=== PATIENT | male | born 1955 | race Caucasian/White ===

== ENCOUNTER → 2024-02-07 19:23 | Outpatient (REF) | payer MEDICARE, SELFPAY | LOC: PAVMRI 19:23 | PROVIDERS: ATTENDING PHYSICIAN Orthopaedic Surgery; FAMILY PHYSICIAN Family Medicine | DX: M54.12 Radiculopathy, cervical region (principal) | CPT/HCPCS: 72141 ==

== ENCOUNTER 2024-02-11 07:14 | Inpatient (IN) | payer MEDICARE, SELFPAY ==
[2024-02-08 15:04] VITALS: BP 117/66
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
[2024-02-08] MEDS: DILAUDID 0.5 MG IV (16:43)
[2024-02-08] MEDS: ZOFRAN 4 MG IV (16:44)
[2024-02-08 16:51] VITALS: BP 140/73
[2024-02-08 16:52] LABS: % Basophils 0.3 % (0-2); % Eosinophils 0.6 % (0-6); % Immature Granulocytes 0.5 % (0-0.5); % Lymphocytes 6.1 % (20.5-51.1); % Monocytes 5.2 % (1.7-9.3); % Neutrophils 87.3 % (42.2-75.2); Absolute Eosinophils 0.1 10^3/uL (0-0.7); Absolute Immature Granulocytes 0.1 10^3/uL (0-0.05); Absolute Monocytes 0.8 10^3/uL (0.1-0.6); Absolute Neutrophils 13.8 10^3/uL (1.4-6.5); Hematocrit 44.2 % (39.0-52.0); Hemoglobin 14.8 g/dL (13.0-18.0); Mean Corp Hgb Conc. 33.5 g/dL (33.0-37.0); Mean Corpuscular Hgb 30.5 pg (27.0-31.0); Mean Corpuscular Volume 90.9 fL (80.0-94.0); Mean Platelet Volume 10.5 fL (7.4-10.4); Nucleated Red Blood Cells % 0 % (-); Platelet Count 177 10^3/uL (130-400); Red Blood Cell Count 4.86 10^6/uL (4.70-6.10); Red Cell Dist. Width 12.7 % (11.5-14.5); White Blood Cell Count 15.8 10^3/uL (4.8-10.8)
[2024-02-08 17:00] VITALS: BP 140/72
[2024-02-08 17:14] LABS: ALT (SGPT) 18 U/L (0-50); AST (SGOT) 26 U/L (17-59); Albumin 4.4 g/dl (3.5-5.0); Alkaline Phosphatase 84 U/L (38-126); Blood Urea Nitrogen 18 mg/dl (9-20); Calcium 9.6 mg/dl (8.4-10.2); Carbon Dioxide 31 mmol/L (22-30); Chloride 103 mmol/L (98-107); Glucose 139 mg/dl (70-99); Potassium 4.4 mmol/L (3.5-5.1); Sodium 139 mmol/L (135-145); Total Bilirubin 0.8 mg/dl (0.2-1.3); Total Protein 7.3 g/dl (6.3-8.2); eGFR > 60.00
[2024-02-08] MEDS: DILAUDID 0.25 MG IV (19:29)
--- NOTE | 2024-02-08 20:26 | EDRN ---
Pt. was discharged w/ follow up plan in place and prescriptions sent for pain control at home. Originally, pt. was agreeable. After RN took out pt.'s IV, placed sling, and attempted to assist pt. into wheelchair, pt. became very upset, stating, 'I
can't go home. I can't care for myself and I'm in an extreme amount of pain'. ELECTRICIAN STATION ASSISTANT aware. Pt. to be admitted.
[2024-02-08 20:41] VITALS: BP 134/85
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
[2024-02-08 22:03] VITALS: BP 132/82
[2024-02-08 22:38] VITALS: BP 126/68
[2024-02-08] MEDS: SENOKOT 17.2 MG PO (23:23)
[2024-02-08] MEDS: TORADOL 15 MG IV (23:24)
[2024-02-08] MEDS: TYLENOL 1000 MG PO (23:24)
[2024-02-08] MEDS: FLUSH (NSS) 2 FLUSH IV (23:28)
--- NOTE | 2024-02-09 04:23 | PTCARENOTE ---
Patient received from ED via wheelchair. He was assisted to stand with assist x2. He was able to walk to bathroom to use toilet and for HS care with assist. Right arm sling in place. Son at bedside until patient settled ad then went home.
Patient was oriented to room and surrounding. HRR, breath sounds are diminished, abdomen round nontender. Patient c/o pain to left knee. States he didn't feel pain there when in ED but now feels it. Has had repair to kneecap in past but this is
not that pain. +1 knee edema noted. +pedal pulse. Patient admits to chronic swelling there. LEAD MINER, covering house in to eval. XRY ordered for am. Toradol as per prn order. Patient sleeping quietly now.
[2024-02-09] MEDS: TYLENOL 1000 MG PO ×3 (07:31→21:33)
[2024-02-09] MEDS: PROTONIX 40 MG PO (07:31)
--- NOTE | 2024-02-09 07:31 | W.PN.HOSP.TC ---
Today's Communication/Plan
-
Pain Control
PT/OT
Ortho Eval
Assessment / Plan
Assessment / Plan
Physical Exam
General: No acute distress appears comfortable at this time.
HEENT: Moist mucous membranes and PERRLA
Respiratory: Clear; No Wheezes, Rales or Rhonchi
Cardiac: S1/S2 and Regular Rhythm; No Murmur
GI: Soft, Non Tender, Non Distended and Normal Bowel Sounds
Musculoskeletal: RUE in sling.
Neuro: AO x 3
A/P: Patient is a 69y M with no significant PMH who presents to ED for evaluation of pain in the R shoulder and low back following trauma this afternoon.
Trauma
Right Scapula / Glenoid Fracture
Left 10th Rib Fracture with Displacement
Left L1 Transverse Process Fracture
- Pain control prn opiates, Toradol and Valium.
- Maintain sling to the RUE.
- Ortho eval appreciated
- PT / OT evaluations
-Venous duplex neg for DVT
GERD
-cont PPI
Leukocytosis
- Likely stress response.
- Resolved
DVT Prophylaxis: SCDs
Code Status: Full
I spent a total of 50 minutes with the patient or on the floor. More than 50% of this time involved counseling and coordination of care.
Anticipated Discharge: 24 - 48 hours
Subjective/Interval History
-
Date of Service: February 09, 2024
no acute distress comfortable at rest. Expresses concern left calf discomfort feels similar back to when he had a DVT.
Objective Data
-
Labs:
Laboratory Results
02/09/24
06:57
WBC Pending
Hgb Pending
Hct Pending
Plt Count Pending
Sodium Pending
Potassium Pending
Chloride Pending
Carbon Dioxide Pending
BUN Pending
Creatinine Pending
Glucose Pending
Calcium Pending
Vital Signs:
Vital Signs
Temp Pulse Resp BP Pulse Ox
97.9 F 80 18 126/68 93
02/08/24 22:38 02/08/24 22:38 02/08/24 22:38 02/08/24 22:38 02/08/24 22:38
I&O
02/08/24 02/09/24 02/10/24
06:59 06:59 06:59
Intake Total 480 / 480
Output Total
Balance 479 / 479
[2024-02-09 08:03] LABS: Hematocrit 40.4 % (39.0-52.0); Hemoglobin 13.5 g/dL (13.0-18.0); Mean Corp Hgb Conc. 33.4 g/dL (33.0-37.0); Mean Corpuscular Hgb 30.3 pg (27.0-31.0); Mean Corpuscular Volume 90.6 fL (80.0-94.0); Mean Platelet Volume 10.8 fL (7.4-10.4); Platelet Count 161 10^3/uL (130-400); Red Blood Cell Count 4.46 10^6/uL (4.70-6.10); White Blood Cell Count 8.6 10^3/uL (4.8-10.8)
[2024-02-09 08:20] LABS: Blood Urea Nitrogen 20 mg/dl (9-20); Carbon Dioxide 29 mmol/L (22-30); Chloride 102 mmol/L (98-107); Glucose 92 mg/dl (70-99); Potassium 3.9 mmol/L (3.5-5.1); Sodium 136 mmol/L (135-145); eGFR > 60.00
[2024-02-09] MEDS: TORADOL 15 MG IV (09:26)
[2024-02-09 09:30] VITALS: BP 140/71
[2024-02-09 09:33] LABS: Hepatitis C Antibody Negative (Negative)
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
[2024-02-09 11:50] VITALS: BMI 29.4
--- NOTE | 2024-02-09 12:19 | PTCARENOTE ---
Pt experiencing a lot of pain w/ movement. Unable to get OOB w/ assistance to get to stretcher for testing. Pt c/o feeling L lung congestion this morning - chest xray added on. Pt also c/o pain in L calf - hospitalist aware - SCDs discontinued
and US pending. PT/OT waiting for ortho to see pt before doing assessment.
--- NOTE | 2024-02-09 12:26 | VNURNOTE ---
[facility] met with patient to explain [facility] services, frequency of visits, homebound status. Brochure provided with contact numbers. Patient requesting elevated toilet seat. Also requesting lift to help with getting out of a standard chair. This
author reached out to [facility], spoke with Sheree. She confirmed she has elevated toilet seats in stock. Chair lift would be out of pocket. Awaiting PT eval and further documentation before proceeding. Referral placed in [facility].
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
[2024-02-09] MEDS: ROXICODONE 10 MG PO ×2 (13:34→22:45)
[2024-02-09 15:20] VITALS: BP 138/73
[2024-02-09] MEDS: LOVENOX 40 MG SC (18:43)
--- NOTE | 2024-02-09 19:18 | PTCARENOTE ---
Pt OOB w/ assist from nurse. Able to ambulate down abebe w/o assistive devices. Used bathroom and voided. Sitting in chair and eating dinner / chatting w/ family. Pain tolerable.
[2024-02-09] MEDS: SENOKOT 17.2 MG PO (21:32)
[2024-02-09 23:19] VITALS: BP 120/66
--- NOTE | 2024-02-10 07:10 | W.PN.HOSP.TC ---
Today's Communication/Plan
-
PT/OT
Back Brace ordered
pain control
Right upper Extremity nonweightbearing
Assessment / Plan
Assessment / Plan
Physical Exam
General: No acute distress appears comfortable at this time.
HEENT: Moist mucous membranes and PERRLA
Respiratory: Clear; No Wheezes, Rales or Rhonchi
Cardiac: S1/S2 and Regular Rhythm; No Murmur
GI: Soft, Non Tender, Non Distended and Normal Bowel Sounds
Musculoskeletal: RUE motion limited due to pain
Neuro: AO x 3
A/P: Patient is a 69y M with no significant PMH who presents to ED for evaluation of pain in the R shoulder and low back following trauma this afternoon.
Trauma
Right Scapula / Glenoid Fracture
Left 10th Rib Fracture with Displacement
Left L1 Transverse Process Fracture
- Pain control prn opiates, Toradol and Valium.
Ortho eval appreciated
-Sling to right upper extremity
-Right upper extremity nonweightbearing
-Continue range of motion of elbow to prevent stiffness
- PT / OT evaluations
-Venous duplex neg for DVT
-Neurosx eval requested
-[place] back brace ordered for comfort
GERD
-cont PPI
Leukocytosis
- Likely stress response.
- Resolved
DVT Prophylaxis: SCDs
Code Status: Full
I spent a total of 50 minutes with the patient or on the floor. More than 50% of this time involved counseling and coordination of care.
Anticipated Discharge: 24 - 48 hours
Subjective/Interval History
-
Date of Service: February 10, 2024
continues to report pain, recently received prn. RUE motion limited d/t pain
Objective Data
-
Labs:
Laboratory Results
02/10/24
06:00
WBC Pending
Hgb Pending
Hct Pending
Plt Count Pending
Sodium Pending
Potassium Pending
Chloride Pending
Carbon Dioxide Pending
BUN Pending
Creatinine Pending
Glucose Pending
Calcium Pending
Vital Signs:
Vital Signs
Temp Pulse Resp BP Pulse Ox
98.0 F 70 18 120/66 93
02/09/24 23:19 02/09/24 23:19 02/09/24 23:19 02/09/24 23:19 02/09/24 23:19
I&O
02/09/24 02/10/24 02/11/24
06:59 06:59 06:59
Intake Total 480 / 480
Output Total
Balance 479 / 479
[2024-02-10 07:49] VITALS: BP 132/68
[2024-02-10] MEDS: PROTONIX 40 MG PO (07:50)
[2024-02-10] MEDS: DILAUDID 0.5 MG IV ×3 (07:50→19:46)
[2024-02-10] MEDS: TYLENOL 1000 MG PO ×3 (07:50→22:31)
[2024-02-10 08:13] LABS: Blood Urea Nitrogen 17 mg/dl (9-20); Calcium 8.8 mg/dl (8.4-10.2); Carbon Dioxide 27 mmol/L (22-30); Chloride 102 mmol/L (98-107); Estimated Creatinine Clearance 86 ml/min; Glucose 110 mg/dl (70-99); Phosphorus 2.9 mg/dl (2.5-4.5); Potassium 4.2 mmol/L (3.5-5.1); Sodium 133 mmol/L (135-145); eGFR > 60.00
[2024-02-10 08:21] LABS: Hematocrit 39.9 % (39.0-52.0); Hemoglobin 13.6 g/dL (13.0-18.0); Mean Corp Hgb Conc. 34.1 g/dL (33.0-37.0); Mean Corpuscular Hgb 30.3 pg (27.0-31.0); Mean Corpuscular Volume 88.9 fL (80.0-94.0); Mean Platelet Volume 11.1 fL (7.4-10.4); Platelet Count 145 10^3/uL (130-400); Red Blood Cell Count 4.49 10^6/uL (4.70-6.10); Red Cell Dist. Width 12.9 % (11.5-14.5); White Blood Cell Count 9.5 10^3/uL (4.8-10.8)
[2024-02-10] MEDS: ROXICODONE 10 MG PO (12:13)
[2024-02-10 15:11] VITALS: BP 132/72
[2024-02-10] MEDS: LOVENOX 40 MG SC (17:49)
[2024-02-10] MEDS: FLUSH (NSS) 1 FLUSH IV (19:49)
[2024-02-10] MEDS: SENOKOT 17.2 MG PO (22:31)
[2024-02-10 23:13] VITALS: BP 103/63
--- NOTE | 2024-02-11 07:00 | W.PN.HOSP.TC ---
Today's Communication/Plan
-
PT/OT
Pain Control
Pending [employer] equipment back brace fitting for comfort
maintain RUE sling nonweightbearing
Gabapentin
Nystatin Swish
fall precautions
Neurosx Orthopedic evals appreciated
Assessment / Plan
Assessment / Plan
Physical Exam
General: Mild distress due to pain
HEENT: Moist mucous membranes and PERRLA
Respiratory: Clear; No Wheezes, Rales or Rhonchi
Cardiac: S1/S2 and Regular Rhythm; No Murmur
GI: Soft, Non Tender, Non Distended and Normal Bowel Sounds
Musculoskeletal: RUE motion limited due to pain, sling in place
Neuro: AO x 3
A/P: Patient is a 69y M with no significant PMH who presents to ED for evaluation of pain in the R shoulder and low back following trauma this afternoon.
Trauma
Right Scapula / Glenoid Fracture
Left 10th Rib Fracture with Displacement
Left L1 Transverse Process Fracture
- Pain control prn opiates, Toradol and Valium.
Ortho eval appreciated right elbow fracture ruled out with XR and subsequent CT
-Sling to right upper extremity
-Right upper extremity nonweightbearing
-Continue range of motion of elbow to prevent stiffness
- PT / OT eval appreciated home health with 24h assist
-Venous duplex neg for DVT
-Neurosx eval appreciated no surgical intervention indicated, ok to mobilize as needed, LSO brace as needed for comfort
-Lawall back brace ordered for comfort awaiting fitting
Right wrist XR
-no acute abn's, noted old 4 mm ununited chip fracture at the tip of the ulnar styloid
RUE neuropathic pain
Gabapentin started 100 mg TID
Oral Thrush
nystatin swish started 02/10-02/16 planned for 7 days therapy, may extend depending on response
GERD
-cont PPI
Leukocytosis
- Likely stress response.
- Resolved
-later mild elevation noted, remains afebrile, no other signs symptoms infection noted, monitoring off abx
CXR noted low lung volumes atelectasis likely due to inspiratory effort restricted by pain
-Possible Right basilar pna noted does not correlate clinically at this time. Monitoring off abx
-Incentive spirometer encouraged
DVT Prophylaxis: SCDs
Code Status: Full
discussed with patient and family at bedside
I spent a total of 50 minutes with the patient or on the floor. More than 50% of this time involved counseling and coordination of care.
Anticipated Discharge: 24 - 48 hours
Subjective/Interval History
-
Date of Service: February 11, 2024
Patient reporting shooting pain right upper extremity (with known history degenerative disc disease likely neuropathic pain).
Patient also reports uncomfortable sensation in mouth and back of throat (examination tongue noted cottage cheese appearance likely oral thrush)
Otherwise, patient reports pain well controlled at rest with current pain regimen.
Reports constipation, bowel regimen increased.
Family present at bedside during evaluation.
Objective Data
-
Labs:
Laboratory Results
02/11/24
06:00
WBC Pending
Hgb Pending
Hct Pending
Plt Count Pending
Sodium Pending
Potassium Pending
Chloride Pending
Carbon Dioxide Pending
BUN Pending
Creatinine Pending
Glucose Pending
Calcium Pending
Vital Signs:
Vital Signs
Temp Pulse Resp BP Pulse Ox
97.5 F 75 16 103/63 94
02/10/24 23:13 02/10/24 23:13 02/10/24 23:13 02/10/24 23:13 02/10/24 23:13
I&O
02/10/24 02/11/24 02/12/24
06:59 06:59 06:59
Intake Total 950 / 950
Output Total 600 / 600
Balance 350 / 350
[2024-02-11 07:20] VITALS: BP 144/68
[2024-02-11 08:00] LABS: Hematocrit 39.5 % (39.0-52.0); Hemoglobin 13.5 g/dL (13.0-18.0); Mean Corp Hgb Conc. 34.2 g/dL (33.0-37.0); Mean Corpuscular Hgb 29.9 pg (27.0-31.0); Mean Corpuscular Volume 87.4 fL (80.0-94.0); Red Blood Cell Count 4.52 10^6/uL (4.70-6.10); Red Cell Dist. Width 12.8 % (11.5-14.5); White Blood Cell Count 12.1 10^3/uL (4.8-10.8)
[2024-02-11] MEDS: TYLENOL 1000 MG PO ×3 (08:26→21:25)
[2024-02-11] MEDS: PROTONIX 40 MG PO (08:26)
[2024-02-11 08:41] LABS: Mean Platelet Volume 11.7 fL (7.4-10.4); Platelet Count 139 10^3/uL (130-400)
[2024-02-11 09:35] LABS: Blood Urea Nitrogen 13 mg/dl (9-20); Calcium 9.2 mg/dl (8.4-10.2); Carbon Dioxide 28 mmol/L (22-30); Chloride 101 mmol/L (98-107); Estimated Creatinine Clearance 97 ml/min; Glucose 123 mg/dl (70-99); Phosphorus 2.9 mg/dl (2.5-4.5); Potassium 4.2 mmol/L (3.5-5.1); Sodium 134 mmol/L (135-145); eGFR > 60.00
[2024-02-11] MEDS: ROXICODONE 10 MG PO (09:45)
--- NOTE | 2024-02-11 11:14 | CON.NS ---
Chief Complaint
-
L1 Tp fracture
History of Present Illness
Is a 69-year-old male admitted on 02/08/2024 status post fall from a rear driven forklift. He attempted to lift a low to heavy the forklift tipped and he went over the top of the forklift landing on his back. He noted severe amounts of pain at that
time came to the ER for evaluation. CAT scans were obtained which showed a left L1 transverse process fracture. As well as a T10 left rib fracture and right scapular fracture. Seen by orthopedics was placed in a sling for his scapular fracture.
Denies any radicular symptoms into his upper or lower extremities at this point in time. Denies any weakness in his lower extremities. He has expected pain with movement.
Review of Systems
-
10 point review of systems obtained is negative except stated in HPI
Medication and Allergies
Home Medications
Home Medications
�Medication �Instructions �Recorded
omeprazole 20 mg capsule,delayed 20 mg PO DAILY Gastrointestinal 02/08/24
release Issue
Allergies
Allergies
Allergy/AdvReac Type Severity Reaction Status Date / Time
No Known Allergies Allergy Verified 02/08/24 15:07
Physical Exam
-
Exam:
Awake alert and orient x 3
Right upper extremity in sling
Bruising visible on the left leg
Full strength upper lower extremities right upper extremity limited evaluation due to scapular fracture
Normal sensation
Normal reflexes
CAT scan shows left L1 transverse process fracture. There is possibly a left L2 transverse process fracture as well
Problems
-
Problem Status Onset Code
Fx lumbar vertebra-closed S32.009A
Fracture of rib S22.39XA
Fracture closed, scapula S42.109A
Assessment / Plan
-
Left transverse process fracture
1. No acute neurosurgical interventions
2. Okay to mobilize as needed
3. LSO brace as needed for comfort does not need to wear if he does not want to
4. No follow-up is needed for this transverse process fracture however he did state to me that he does have an appointment scheduled with me for cervical spine on Monday of next week. I am going to have the office reach out to reschedule him
for 6 weeks.
[2024-02-11 12:15] VITALS: BP 116/74; PULSE 82; O2SAT 96
[2024-02-11 12:56] VITALS: BP 116/74; PULSE 82; O2SAT 96
[2024-02-11] MEDS: MYCOSTATIN ORAL SUSPENSION 5 ML PO ×3 (13:25→21:24)
[2024-02-11] MEDS: NEURONTIN 100 MG PO ×3 (13:25→21:25)
[2024-02-11] MEDS: MIRALAX 17 GRAMS PO (13:25)
--- NOTE | 2024-02-11 13:41 | W.PN.UPDATE ---
Update Note
Progress Note Update
X-rays of right elbow limited due to patient limitations with motion. There is degenerative spurring and calcification adjacent to the coronoid, concerning for possible fracture.
X-rays of the right wrist negative for acute pathology.
Evaluated patient who reports increased swelling and bruising about his right elbow. He has pain/limitations with rotation of the forearm. He does have a h/o proximal biceps tendon rupture at the level of the shoulder with associated king
deformity. He denies any n/t, but does have pain with ROM of the wrist, particularly in the forearm, and again worse with forearm rotation. He has been worked up for cervical radiculopathy with recent MRI c spine prior to injury.
Moderate diffuse swelling of entire RUE. Sling in place. There is swelling and ecchymosis about the medial aspect of the forearm. Biceps tendon palpable in antecubital fossa. Good flexion/extension. Limited pronation/supination secondary to
pain/apprehesion. Full ROM wrist and hand without pain. Full sensation about entire RUE. N/v intact.
Imaging reviewed with Dr. Carrasco. Due to patient's level of pain, swelling, and limitation with elbow ROM, will order CT of the right elbow to evaluate for acute fracture. Will follow up with results of imaging to further discuss definitive
treatment recommendations going forward. Maintain sling immobilization and NWB RUE. Will add lidocaine patches for pain control.
[2024-02-11] MEDS: TORADOL 15 MG IV (13:48)
[2024-02-11] MEDS: LIDOCAINE 4% PATCH TOPICAL ×2 (14:00→14:35)
[2024-02-11 15:05] VITALS: BP 119/65
[2024-02-11] MEDS: LOVENOX 40 MG SC (18:10)
[2024-02-11] MEDS: LIDOCAINE 4% PATCH 1 PATCH TOPICAL (18:11)
[2024-02-11] MEDS: SENOKOT-S 1 TABLET PO (21:24)
[2024-02-11 23:35] VITALS: BP 136/67
[2024-02-12 07:45] VITALS: BP 134/69
[2024-02-12 08:45] LABS: Hematocrit 39.6 % (39.0-52.0); Hemoglobin 13.5 g/dL (13.0-18.0); Mean Corp Hgb Conc. 34.1 g/dL (33.0-37.0); Mean Corpuscular Hgb 29.7 pg (27.0-31.0); Mean Corpuscular Volume 87.2 fL (80.0-94.0); Mean Platelet Volume 11.1 fL (7.4-10.4); Platelet Count 187 10^3/uL (130-400); Red Blood Cell Count 4.54 10^6/uL (4.70-6.10); Red Cell Dist. Width 12.9 % (11.5-14.5)
[2024-02-12] MEDS: MIRALAX 17 GRAMS PO (09:09)
[2024-02-12] MEDS: SENOKOT-S 1 TABLET PO (09:09)
[2024-02-12] MEDS: MYCOSTATIN ORAL SUSPENSION 5 ML PO ×2 (09:09→13:30)
[2024-02-12] MEDS: PROTONIX 40 MG PO (09:09)
[2024-02-12] MEDS: NEURONTIN 100 MG PO ×2 (09:09→16:25)
[2024-02-12] MEDS: LIDOCAINE 4% PATCH TOPICAL (09:10)
[2024-02-12] MEDS: TYLENOL 1000 MG PO ×2 (09:16→16:25)
[2024-02-12 09:32] LABS: Blood Urea Nitrogen 15 mg/dl (9-20); Calcium 9.1 mg/dl (8.4-10.2); Carbon Dioxide 26 mmol/L (22-30); Chloride 101 mmol/L (98-107); Estimated Creatinine Clearance 97 ml/min; Glucose 114 mg/dl (70-99); Phosphorus 3.7 mg/dl (2.5-4.5); Potassium 4.3 mmol/L (3.5-5.1); Sodium 133 mmol/L (135-145); eGFR > 60.00
[2024-02-12] MEDS: DELTASONE 40 MG PO (10:22)
--- NOTE | 2024-02-12 10:32 | W.PN.UPDATE ---
Update Note
Progress Note Update
CT of the right elbow is negative for fracture. Mild arthritic changes. Based on his clinical exam, subjective complaints, and radiologic findings at this point I do believe his symptoms are stemming from the 5-6 level of his cervical spine. He
complains of some mild neck pain into the shoulder and down the arm into the right thumb. This correlates well with his cervical MRI findings. I included Drs. Dumnot and Luna via TT and recommended steroid dosing as they work on disposition. I
discussed all the conservative, nonsurgical treatment for, what I believe to be, a cervical radiculopathy. Upon discharge I would recommend a follow-up with our PM&R team. D/c plan updated. Ortho to sign off for now as we await post hospital plan
--- NOTE | 2024-02-12 11:23 | CM ---
Addendum entered by Apolonia Ashley 02/12/24 14:20:
Patient switched to inpatient and IMM provided
Home today with VN
Original Note:
manager environmental health reviewed patient's chart and met with patient and per patient plan is for possible discharge later today, per patient he has chair lift delivered to his home, patient is asking for a commode, caser reached out to physical therapy
who will need a script for a commode, physician is aware.
Plan; Home with [facility], physical therapy to supply commode and patient has ordered a chair lift and had it delivered to his home.
--- NOTE | 2024-02-12 14:10 | W.DS.TRANS ---
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
-
Discharge Instructions:
Discharge Diagnosis/Procedures Trauma
Right Scapula / Glenoid Fracture
Left 10th Rib Fracture with Displacement
Left L1 Transverse Process Fracture
RUE neuropathic pain
Diet Low Cholesterol
Activity As tolerated
Blood Work bmp in 1 week with pcp
Instructions:
Stand-Alone Forms:
Changes to Home Medications: Yes
Discharge Medications:
DC Medications w/original date entered in [employer]
omeprazole 20 mg capsule,delayed release 20 mg PO DAILY Gastrointestinal Issue 02/08/24
gabapentin 100 mg capsule 100 mg PO TID 30 days #90 caps 02/12/24
lidocaine 4 % topical patch 1 patch topical DAILY #30 ea 02/12/24
methylprednisolone 4 mg tablets in a dose pack (Medrol (Ray)) See Rx Instructions PO .COMPLEX #21 ea 02/12/24
oxycodone 10 mg tablet 10 mg PO Q4HPRN PRN Moderate Pain #18 tabs 02/12/24
Home Medication Changes
gabapentin 100 mg capsule 100 mg PO TID 30 days #90 caps 02/12/24
lidocaine 4 % topical patch 1 patch topical DAILY #30 ea 02/12/24
methylprednisolone 4 mg tablets in a dose pack (Medrol (Ray)) See Rx Instructions PO .COMPLEX #21 ea 02/12/24
oxycodone 10 mg tablet 10 mg PO Q4HPRN PRN Moderate Pain #18 tabs 02/12/24
Pending Results: No
[2024-02-12 14:45] VITALS: BP 127/63
--- NOTE | 2024-02-13 16:52 | W.PN.HOSP.TC ---
Addendum entered and electronically signed by Frankie Tenorio MD 02/13/24 16:56:
[id number]
Original Note:
Today's Communication/Plan
-
-Medrol logan upon dc
-follow-up with our PM&R team
Maintain sling immobilization and NWB RUE.
Assessment / Plan
Assessment / Plan
Physical Exam
General: Mild distress due to pain
HEENT: Moist mucous membranes and PERRLA
Respiratory: Clear; No Wheezes, Rales or Rhonchi
Cardiac: S1/S2 and Regular Rhythm; No Murmur
GI: Soft, Non Tender, Non Distended and Normal Bowel Sounds
Musculoskeletal: RUE motion limited due to pain, sling in place
Neuro: AO x 3
A/P: Patient is a 69y M with no significant PMH who presents to ED for evaluation of pain in the R shoulder and low back following trauma this afternoon.
Trauma
Right Scapula / Glenoid Fracture
Left 10th Rib Fracture with Displacement
Left L1 Transverse Process Fracture
- Pain control prn opiates, Toradol and Valium.
Ortho eval appreciated right elbow fracture ruled out with XR and subsequent CT
-Sling to right upper extremity
-Right upper extremity nonweightbearing
-Continue range of motion of elbow to prevent stiffness
- PT / OT eval appreciated home health with 24h assist
-Venous duplex neg for DVT
-Neurosx eval appreciated no surgical intervention indicated, ok to mobilize as needed, LSO brace as needed for comfort
-Lawall back brace ordered for comfort awaiting fitting
-Medrol logan upon dc
-follow-up with our PM&R team
Maintain sling immobilization and NWB RUE.
Right wrist XR
-no acute abn's, noted old 4 mm ununited chip fracture at the tip of the ulnar styloid
RUE neuropathic pain
Gabapentin started 100 mg TID
Oral Thrush
nystatin swish started 02/10-02/16 planned for 7 days therapy, may extend depending on response
GERD
-cont PPI
Leukocytosis
- Likely stress response.
- Resolved
-later mild elevation noted, remains afebrile, no other signs symptoms infection noted, monitoring off abx
CXR noted low lung volumes atelectasis likely due to inspiratory effort restricted by pain
-Possible Right basilar pna noted does not correlate clinically at this time. Monitoring off abx
-Incentive spirometer encouraged
DVT Prophylaxis: SCDs
Code Status: Full
discussed with patient and family at bedside
More than 30 minutes spent in discharge including
Final examination of the patient
Summarizing hospital stay
Instructions for continuing care to all relevant caregivers
Preparation of discharge records, prescriptions, and referral forms
Total time spent (35 in minutes):
Anticipated Discharge: Today
Subjective/Interval History
-
Date of Service: February 12, 2024
no acute events, pain improved
Objective Data
-
Vital Signs:
Vital Signs
Temp Pulse Resp BP Pulse Ox
97.9 F 84 19 127/63 92
02/12/24 14:45 02/12/24 14:45 02/12/24 14:45 02/12/24 14:45 02/12/24 14:45
I&O
02/12/24 02/13/24 02/14/24
06:59 06:59 06:59
Intake Total 1460 / 1460 480 / 480
Output Total 1280 / 1280 750 / 750
Balance 180 / 180 -270 / -270
Review of Systems
-
History Source: Patient
All other systems: Not reviewed unless documented
Data Reviewed
-
Diagnostic Radiology: Image personally visualized and interpreted and Report Reviewed by me
CT Scan: Image personally visualized and interpreted and Report Reviewed by me
Labs: Labs Reviewed by me
== END 2024-02-12 17:37 | disposition home health service (06) | DRG 563 ==
LOC: 4 WEST ACU 07:14
PROVIDERS: Internal Medicine; Nurse Practitioner; ADMITTING PHYSICIAN Hospitalist; ATTENDING PHYSICIAN Internal Medicine; CONSULT PHYSICIAN Neurological Surgery; CONSULT PHYSICIAN Orthopaedic Surgery; EMERGENCY PHYSICIAN Emergency Medicine; FAMILY PHYSICIAN Family Medicine
DX: S42.101A Fracture of unspecified part of scapula, right shoulder, initial encounter for closed fracture (principal); B37.0 Candidal stomatitis; M25.562 Pain in left knee; K21.9 Gastro-esophageal reflux disease without esophagitis; X58.XXXA Exposure to other specified factors, initial encounter
CPT/HCPCS: 70450; 71046; 71260; 72125; 73030; 73060; 73070; 73110; 73200; 73564; 73700; 74177; 80048; 80053; 83735; 84100; 85025; 85027; 86803; 87070; 93970; 96374; 96375; 96376; 97163; 97167; 97530; 97535; 99285; Q9967

== ENCOUNTER → 2024-02-14 16:28 | Outpatient (REF) | payer MEDICARE, SELFPAY | LOC: RAD 16:28 | PROVIDERS: ATTENDING PHYSICIAN Family Medicine | DX: R22.31 Localized swelling, mass and lump, right upper limb (principal); M79.621 Pain in right upper arm | CPT/HCPCS: 93971 ==

== ENCOUNTER 2024-02-14 17:45 | Emergency (ER) | payer MEDICARE, SELFPAY ==
[2024-02-14 17:47] VITALS: BP 163/79
[2024-02-14 17:59] LABS: % Basophils 0.6 % (0-2); % Eosinophils 3.4 % (0-6); % Immature Granulocytes 0.4 % (0-0.5); % Lymphocytes 16.8 % (20.5-51.1); % Monocytes 11.5 % (1.7-9.3); % Neutrophils 67.3 % (42.2-75.2); Absolute Basophils 0.1 10^3/uL (0-0.2); Absolute Eosinophils 0.3 10^3/uL (0-0.7); Absolute Lymphocytes 1.6 10^3/uL (1.2-3.4); Absolute Monocytes 1.1 10^3/uL (0.1-0.6); Absolute Neutrophils 6.3 10^3/uL (1.4-6.5); Hematocrit 39.2 % (39.0-52.0); Hemoglobin 13.3 g/dL (13.0-18.0); Mean Corp Hgb Conc. 33.9 g/dL (33.0-37.0); Mean Corpuscular Volume 88.3 fL (80.0-94.0); Mean Platelet Volume 10.1 fL (7.4-10.4); Nucleated Red Blood Cells % 0 % (-); Platelet Count 228 10^3/uL (130-400); Red Blood Cell Count 4.44 10^6/uL (4.70-6.10); Red Cell Dist. Width 12.8 % (11.5-14.5); White Blood Cell Count 9.3 10^3/uL (4.8-10.8)
[2024-02-14 18:10] LABS: INR 0.93; PT 12.5 Sec (11.4-14.6)
[2024-02-14 18:16] LABS: ALT (SGPT) 40 U/L (0-50); AST (SGOT) 45 U/L (17-59); Albumin 3.9 g/dl (3.5-5.0); Alkaline Phosphatase 88 U/L (38-126); Blood Urea Nitrogen 21 mg/dl (9-20); Calcium 9.4 mg/dl (8.4-10.2); Carbon Dioxide 29 mmol/L (22-30); Chloride 102 mmol/L (98-107); Glucose 117 mg/dl (70-99); Potassium 4.5 mmol/L (3.5-5.1); Sodium 140 mmol/L (135-145); Total Bilirubin 0.5 mg/dl (0.2-1.3); eGFR > 60.00
[2024-02-14 19:32] VITALS: BP 145/85
--- NOTE | 2024-02-14 20:03 | ED.GENMED ---
History of Present Illness
General
Chief Complaint: DVT/Possible Blood Clot
Source: patient
Time Seen by Provider: 02/14/24 19:52
History of Present Illness
History of Present Illness:
69-year-old male presents to the emergency room complaining of DVT in the right upper extremity. Patient had a recent hospitalization here at [facility] for a glenoid and scapular fracture which occurred after a fall. Patient is right-hand
dominant. He was noted to have swelling and discomfort in the right upper extremity prompting a DVT study. The study was positive for DVT. He was sent in to initiate treatment. Patient denies chest pain or shortness of breath.
Past History
Past History
ED Past Medical History: GERD
ED Past Surgical History: Orthopedic
Social History
Tobacco: Former smoker
Alcohol: Daily (2 beers/evening)
Drug: None
Personal:
Phy Exam
Physical Exam
Physical Exam:
General: Awake, Alert, Oriented X3. No acute distress.
Vitals: unremarkable
Head: Atraumatic
Eyes: Pupils equal, EOMI
Neck: Trachea midline
Lungs: Clear and equal b/l
Heart: Regular rate, no murmurs
Neuro: Nonfocal
Skin: Warm, dry, no rash
Extremities: pulses equal b/l, moderate swelling noted right upper extremity, cap refill intact
Course
Orders/Labs/Results
Orders:
Orders
02/14/24 17:53
CMP [Comprehensive Metabolic Panel] Urgent
Complete Blood Count/With Diff Urgent
Glycohemoglobin (HgbA1c) Urgent
PT/INR [Prothrombin Time] Urgent
02/14/24 20:03
Apixaban [Eliquis] 10 mg PO NOW STA
02/14/24 21:47
Add On- LAB Urgent
Tests Added?: hemaglobin A1C
Abnormal Lab Results
02/14/24
17:53
RBC 4.44 L 10^6/uL
(4.70-6.10)
Absolute Monos (auto) 1.1 H 10^3/uL
(0.1-0.6)
Lymphocytes % 16.8 L %
(20.5-51.1)
Monocytes % 11.5 H %
(1.7-9.3)
BUN 21 H mg/dl
(9-20)
Glucose 117 H mg/dl
(70-99)
02/14/24 17:53
02/14/24 17:53
Vital Signs
Initial and Last Documented VS:
Initial Vital Signs
Temp Pulse Resp BP Pulse Ox
99.0 F 81 18 163/79 97
02/14/24 17:47 02/14/24 17:47 02/14/24 17:47 02/14/24 17:47 02/14/24 17:47
Last Documented Vital Signs
Temp Pulse Resp BP Pulse Ox
99.0 F 85 18 145/85 96
02/14/24 17:47 02/14/24 19:32 02/14/24 19:32 02/14/24 19:32 02/14/24 19:32
MDM/Problems Addressed
Differential Diagnosis Includes:
New onset DVT
MDM/Problems Addressed:
Patient presents from outpatient imaging with a right upper extremity DVT. Physical exam did not suggest any limb ischemia or venous congestion. His heart rate is normal, he does not have pleuritic chest pain, he is not hypotensive and his pulse
ox is normal. We will initiate Eliquis. Patient stable for discharge. There is no objective evidence for PE. Even if he had a small PE the treatment will be the same.
*Radiology
Radiology exam reviewed: radiology read reviewed
*Pulse Oximetry
Patient hypoxic: no
*Console Attendant Interpretation
Rate: normal
Interpretation: normal
Heart Rate: 85
Rhythm: sinus
*Critical Care Note
Total Time (30-74mins, 75-104mins- exclusive of procedures): Not Applicable
ED Attending Note
-
Portions of this chart may have been created with voice recognition software.� Occasional wrong word or��sound alike� substitutions may have occurred due to the inherent limitations of voice recognition software.
Discharge Plan
Departure
Patient Disposition: Home (Routine Discharge)
Date of Disposition: 02/14/24
Time of Disposition: 20:08
Patient with high blood pressure during this ER visit?: Yes
Condition: Good
Discharge Problem:
Acute deep vein thrombosis (DVT) of right upper extremity
Prescriptions:
New
Eliquis DVT-PE Treat 30D Start 5 mg (74 tabs) tablets,dose pack
See Rx Instructions .ROUTE .COMPLEX Qty: 74 0RF
Rx Instructions:
orally per package directions
No Action
omeprazole 20 mg Capsule,Delayed Release(Dr/Ec)
20 mg PO DAILY
lidocaine 4 % Adhesive Patch,Medicated
1 patch topical DAILY Qty: 30 0RF
gabapentin 100 mg Capsule
100 mg PO TID 30 Days Qty: 90 0RF
oxycodone 10 mg Tablet
10 mg PO Q4HPRN PRN (Reason: Moderate Pain) Qty: 18 0RF
methylprednisolone [Medrol (Ray)] 4 mg tablets,dose pack
See Rx Instructions .ROUTE .COMPLEX Qty: 21 0RF
Rx Instructions:
orally per package directions
nystatin 100,000 unit/mL Suspension
5 ml PO QID 7 Days Qty: 140 0RF
Interventions
Interventions:
*Risk Screen - Suicide Last Done: 02/14/24 19:34
*General Assessment Last Done: 02/14/24 17:47
*Neglect/Abuse Screening Last Done: 02/14/24 19:34
*ED COVID-19 Vaccine History Last Done: 02/14/24 17:47
*Nursing Disposition Last Done: 02/14/24 20:38
ED- Cardiac Assessment Last Done: 02/14/24 19:34
ED- Pulmonary Assessment Last Done: 02/14/24 19:34
ED-Peripheral Vascular Assessment Last Done: 02/14/24 19:34
ED-Skin Assessment Last Done: 02/14/24 19:34
Discharge Date and Time
Discharge Date/Time: 02/14/24 20:39
Print Language: BHUTANESE
[2024-02-14] MEDS: ELIQUIS 10 MG PO (20:20)
[2024-02-15 10:18] LABS: Glycohemoglobin (HgbA1c) 6.1 % (4.0-5.6)
== END 2024-02-14 20:39 | disposition home or self-care (01) ==
LOC: EMR 17:45
PROVIDERS: Emergency Medicine; EMERGENCY PHYSICIAN Emergency Medicine; FAMILY PHYSICIAN Family Medicine
DX: I82.621 Acute embolism and thrombosis of deep veins of right upper extremity (principal); R03.0 Elevated blood-pressure reading, without diagnosis of hypertension; K21.9 Gastro-esophageal reflux disease without esophagitis; Z87.891 Personal history of nicotine dependence
CPT/HCPCS: 99283; 80053; 83036; 85025; 85610

== ENCOUNTER 2024-03-01 10:12 | Emergency (ER) | payer MEDICARE, SELFPAY ==
[2024-03-01 10:15] VITALS: BP 144/80
[2024-03-01 12:38] VITALS: BP 138/80
[2024-03-01 12:41] VITALS: BMI 30.3
[2024-03-01 12:53] LABS: % Basophils 0.3 % (0-2); % Eosinophils 2.7 % (0-6); % Immature Granulocytes 0.3 % (0-0.5); % Lymphocytes 20.7 % (20.5-51.1); % Monocytes 10.5 % (1.7-9.3); % Neutrophils 65.5 % (42.2-75.2); Absolute Eosinophils 0.2 10^3/uL (0-0.7); Absolute Lymphocytes 1.6 10^3/uL (1.2-3.4); Absolute Monocytes 0.8 10^3/uL (0.1-0.6); Absolute Neutrophils 4.9 10^3/uL (1.4-6.5); Hematocrit 39.4 % (39.0-52.0); Hemoglobin 13.4 g/dL (13.0-18.0); Mean Corpuscular Hgb 30.7 pg (27.0-31.0); Mean Corpuscular Volume 90.2 fL (80.0-94.0); Mean Platelet Volume 10.3 fL (7.4-10.4); Nucleated Red Blood Cells % 0 % (-); Platelet Count 201 10^3/uL (130-400); Red Blood Cell Count 4.37 10^6/uL (4.70-6.10); Red Cell Dist. Width 12.8 % (11.5-14.5); White Blood Cell Count 7.5 10^3/uL (4.8-10.8)
[2024-03-01 12:55] LABS: Urine Albumin Negative (Neg - Trace); Urine Bilirubin Negative (Negative); Urine Character Clear (Clear); Urine Color Yellow; Urine Glucose Negative (Negative); Urine Ketone Negative (Negative); Urine Leukocyte Negative (Negative); Urine Nitrite Negative (Negative); Urine Occult Blood Negative (Negative); Urine Specific Gravity 1.015 (<1.030); Urine Urobilinogen 1+ (Neg - 1+)
[2024-03-01 12:59] LABS: Chloride 104 mmol/L (98-107); Potassium 4.3 mmol/L (3.5-5.1); Sodium 138 mmol/L (135-145)
[2024-03-01 13:00] VITALS: BP 129/72
[2024-03-01 13:03] LABS: Lactic Acid 0.7 mmol/L (0.7-2.0)
[2024-03-01 13:09] LABS: ALT (SGPT) 54 U/L (0-50); AST (SGOT) 35 U/L (17-59); Albumin 3.8 g/dl (3.5-5.0); Alkaline Phosphatase 102 U/L (38-126); Blood Urea Nitrogen 17 mg/dl (9-20); Calcium 9.5 mg/dl (8.4-10.2); Carbon Dioxide 28 mmol/L (22-30); Estimated Creatinine Clearance 97 ml/min; Glucose 81 mg/dl (70-99); Lipase 145 U/L (23-300); Total Bilirubin 0.7 mg/dl (0.2-1.3); Total Protein 6.6 g/dl (6.3-8.2); eGFR > 60.00
--- NOTE | 2024-03-01 14:44 | ED.GENMED ---
History of Present Illness
General
Chief Complaint: Abdominal Pain
Source: patient, records, spouse, family and physician (Primary care physician)
Exam Limitations: none
Time Seen by Provider: 03/01/24 11:37
Nursing documentation reviewed up to this point in time: agreed with
History of Present Illness
History of Present Illness:
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
Shortly after discharge she had an outpatient ultrasound of the right upper extremity for continued pain and swelling and was found to have a right upper extremity DVT and he was started on Eliquis and has been taking Eliquis since. He presents
today to the emergency room for abdominal distention and pain. He also reports increased swelling in his legs. He says that symptoms started 4 days ago and have progressed to the point that he feels like 'I am 9 months .' He says he has
diffuse abdominal pain. He has swelling in both legs symmetric. He denies any nausea, vomiting, diarrhea in fact has been mildly constipated. Denies any fevers or chills. Denies any other complaints.
Past History
Past History
ED Past Medical History: GERD
ED Past Surgical History: Orthopedic
Social History
Tobacco: Former smoker
Alcohol: Daily (2 beers/evening)
Drug: None
Personal:
Review of Systems
Review of Systems
All Other Systems: ROS reviewed and negative except as documented in HPI and ROS
Constitutional: Denies fever or chills
Respiratory: Denies trouble breathing
Cardiac: Denies chest pain
ABD/GI: Reports abdominal pain and constipated; Denies nausea, vomiting or diarrhea
: Denies flank pain
Musculoskeletal: Reports edema; Denies neck pain or back pain
Neurological: Denies dizzy or headache
Phy Exam
Physical Exam
Physical Exam:
General: Awake, alert; no acute distress
Head: Normocephalic, atraumatic
Eyes: Conjunctiva normal, sclera anicteric
Throat: Airway intact, handling secretions
Neck: Trachea midline
Lungs: Clear to auscultation bilaterally, no wheezing, rales, rhonchi
Heart: Regular rate and rhythm, no murmurs, gallops, or rubs
Abd: Soft, mildly distended, mild diffuse tenderness but no focal tenderness, no palpable abdominal masses
Neuro: No gross deficit
Skin: no rash
Extremities: +2 pitting edema in the lower extremities bilaterally; distal extremities warm and well-perfused
Scores
Heart Failure Risk
Heart Failure Risk Score: Not Applicable
Heart Score for Chest Pain Patients
STEMI patient?: Not applicable
Withdrawal Assessment of Alcohol
Withdrawal Assessment Completed?: Not applicable
Course
Orders/Labs/Results
Orders:
Orders
03/01/24 11:39
CT Abd/pelvis W Iv Cont Urgent
Comment:
Reason For Exam: upper abd pain, distention
03/01/24 12:23
Complete Blood Count/With Diff Urgent
Comprehensive Metabolic Panel Urgent
Lactate Level [Lactic Acid] Urgent
Lipase Urgent
Urinalysis Reflex To Culture Urgent
Date Specimen was Collected: 03/01/24
Time Specimen was Collected: 12:22
03/01/24 12:50
EKG [Electrocardiogram (*1)] Urgent
Reason for Study: Fatigue / Weakness
03/01/24 12:51
EKG- Treatment ONCE
03/01/24 14:55
US Periph Venous LOWER Ext Juanito Urgent
Comment:
Reason For Exam: LE swelling, recent dx UE DVT
03/01/24 16:32
Add On- LAB Urgent
Tests Added?: pro-BNP
03/01/24 16:33
CR Chest - 2 Views Urgent
Comment:
Reason For Exam: eval for CHF
Abnormal Lab Results
03/01/24
12:23
RBC 4.37 L 10^6/uL
(4.70-6.10)
Absolute Monos (auto) 0.8 H 10^3/uL
(0.1-0.6)
Monocytes % 10.5 H %
(1.7-9.3)
ALT 54 H U/L
(0-50)
03/01/24 12:23
03/01/24 12:23
Vital Signs
Initial and Last Documented VS:
Initial Vital Signs
Temp Pulse Resp BP Pulse Ox
36.8 C 64 16 144/80 98
03/01/24 10:15 03/01/24 10:15 03/01/24 10:15 03/01/24 10:15 03/01/24 10:15
Last Documented Vital Signs
Temp Pulse Resp BP Pulse Ox
36.8 C 77 13 162/88 98
03/01/24 10:15 03/01/24 16:17 03/01/24 15:04 03/01/24 16:17 03/01/24 15:04
MDM/Problems Addressed
Differential Diagnosis Includes:
Abdominal pain/distention: Abdominal ascites, abdominal mass, bowel obstruction, constipation, abdominal wall edema
Lower extremity edema: DVT, dependent edema, CHF
MDM/Problems Addressed:
69-year-old male presents for evaluation of abdominal pain, and distention for the past 4 days in the setting of recent traumatic injuries and recently diagnosed upper extremity DVT.. Vitals are normal. Exam as above. Will place an IV check labs
including a CBC and a CMP, lipase. Will check urinalysis. Will check CT abdomen pelvis. Will check lower extremity Dopplers. Check chest x-ray. Will monitor closely reassess after the above.
Labs reviewed: CBC unremarkable, CMP shows no clinically significant abnormalities. Urinalysis negative for infection. No proteinuria. CT abdomen pelvis shows constipation but no other acute pathology. Awaiting results of x-ray, lower extremity
ultrasound.
Chest x-ray reviewed by me shows no cardiomegaly, no pleural effusions, no pulmonary edema or other signs to suggest CHF. Lower extremity ultrasound negative for DVT bilaterally. At this point I suspect his symptoms are related to constipation and
accounting for his distended abdomen and dependent edema accounting for his edema�he has these traumatic injuries and had been on oxycodone although this was discontinued and he has recently been on only Tylenol and gabapentin; his activity level
has been significantly decreased and he is mostly sitting during the day. Both of these things would predispose to constipation and certainly decreased activity would predispose to dependent edema. At this point I see no clear to case for
admission to the hospital at this point in time. I think he is stable for discharge and can follow-up with his primary doctor as an outpatient. Encouraged activity as tolerated, compression stockings and elevation of the feet, MiraLAX as needed.
Spoke about return precautions all questions answered.
Chronic conditions affecting care:
Recently diagnosed DVT
*Radiology
Radiology exam reviewed: radiology read reviewed
*Pulse Oximetry
Patient hypoxic: no
*EKG
Interpreted by ED Provider?: Yes
Heart Rate: 54
Rate: bradycardiac
Rhythm: sinus
Cushing: left axis deviation
Interval: normal interval
QRS Pattern: right bundle branch block
Ischemia: no ischemia
*Critical Care Note
Total Time (30-74mins, 75-104mins- exclusive of procedures): Not Applicable
Data Reviewed
Review of Other/Old Records Reveals: Labs, Records, Radiology Studies and Discharge Summary
Source: patient, records, spouse, family and physician
ED Attending Note
-
Portions of this chart may have been created with voice recognition software.� Occasional wrong word or��sound alike� substitutions may have occurred due to the inherent limitations of voice recognition software.
Discharge Plan
Departure
Patient Disposition: Home (Routine Discharge)
Date of Disposition: 03/01/24
Time of Disposition: 16:54
Patient with high blood pressure during this ER visit?: Yes
Discharge Problem:
Dependent edema, Constipation
Instructions: Constipation, Adult (DC), Swelling
Prescriptions:
No Action
omeprazole 20 mg Capsule,Delayed Release(Dr/Ec)
20 mg PO DAILY
lidocaine 4 % Adhesive Patch,Medicated
1 patch topical DAILY Qty: 30 0RF
gabapentin 100 mg Capsule
100 mg PO TID 30 Days Qty: 90 0RF
oxycodone 10 mg Tablet
10 mg PO Q4HPRN PRN (Reason: Moderate Pain) Qty: 18 0RF
methylprednisolone [Medrol (Ray)] 4 mg tablets,dose pack
See Rx Instructions .ROUTE .COMPLEX Qty: 21 0RF
Rx Instructions:
orally per package directions
nystatin 100,000 unit/mL Suspension
5 ml PO QID 7 Days Qty: 140 0RF
Eliquis DVT-PE Treat 30D Start 5 mg (74 tabs) tablets,dose pack
See Rx Instructions .ROUTE .COMPLEX Qty: 74 0RF
Rx Instructions:
orally per package directions
Referrals:
Robby Balbuena MD [Family Provider] - Follow up in 5-7 days
Activity Restrictions/Additional Instructions:
Thank you for visiting the Emergency Department at [facility].
1. Please schedule a follow up appointment as directed. Call first thing tomorrow morning to make an appointment.
2. If indicated, please take your medications as instructed and indicated on discharge paperwork.
3. If any of your symptoms do not improve, or persist, or become more severe within 6-12 hours, please return to the emergency department for further care.
4. Please return to the emergency department if you develop a headache, neck pain/stiffness, fever greater than 100.4F, chest pain, shortness of breath, persistent nausea, vomiting, slurred speech, difficulty walking, numbness/tingling, weakness,
signs of infection or any other symptoms that are worrisome to you.
Please call [phone] if you have any questions.
Interventions
Interventions:
*Risk Screen - Suicide Last Done: 03/01/24 10:15
*General Assessment Last Done: 03/01/24 10:15
*Neglect/Abuse Screening Last Done: 03/01/24 10:15
ED- Fall Risk Assessment Last Done: 03/01/24 12:51
*ED COVID-19 Vaccine History Last Done: 03/01/24 12:49
GA-Nwjrlp-Jtcsbrusvi Assessment Last Done: 03/01/24 12:52
Discharge Date and Time
Print Language: FRISIAN
[2024-03-01 15:03] VITALS: BP 138/76
[2024-03-01 16:17] VITALS: BP 162/88
[2024-03-01 17:23] VITALS: BP 140/71
[2024-03-01 17:52] LABS: NT-proBNP 212 pg/ml
== END 2024-03-01 17:27 | disposition home or self-care (01) ==
LOC: EMR 10:12
PROVIDERS: EMERGENCY PHYSICIAN Emergency Medicine; FAMILY PHYSICIAN Family Medicine
DX: R60.0 Localized edema (principal); K59.00 Constipation, unspecified; R03.0 Elevated blood-pressure reading, without diagnosis of hypertension; K21.9 Gastro-esophageal reflux disease without esophagitis; Z79.01 Long term (current) use of anticoagulants; Z87.891 Personal history of nicotine dependence; Z86.718 Personal history of other venous thrombosis and embolism
CPT/HCPCS: 99285; 71046; 74177; 80053; 81003; 83605; 83690; 83880; 85025; 93005; 93970; Q9967

== ENCOUNTER → 2024-12-02 10:36 | Outpatient (REF) | payer MEDICARE, SELFPAY | LOC: RAD 10:36 | PROVIDERS: ATTENDING PHYSICIAN Family Medicine | DX: R22.41 Localized swelling, mass and lump, right lower limb (principal) | CPT/HCPCS: 93971 ==

== ENCOUNTER → 2025-01-15 09:09 | Outpatient (REF) | payer MEDICARE, SELFPAY | LOC: RAD 09:09 | PROVIDERS: ATTENDING PHYSICIAN Family Medicine | DX: I82.402 Acute embolism and thrombosis of unspecified deep veins of left lower extremity (principal); I25.10 Atherosclerotic heart disease of native coronary artery without angina pectoris; E78.2 Mixed hyperlipidemia | CPT/HCPCS: 75571 ==

== ENCOUNTER 2025-04-24 08:53 | Emergency (ER) | payer MEDICARE, SELFPAY ==
[2025-04-24 08:55] VITALS: BP 151/70
--- NOTE | 2025-04-24 09:16 | ED.GENMED ---
History of Present Illness
General
Chief Complaint: DVT/Possible Blood Clot
Source: patient
Exam Limitations: none
Time Seen by Provider: 04/24/25 09:01
Nursing documentation reviewed up to this point in time: agreed with
History of Present Illness
History of Present Illness:
Note:
CHIEF COMPLAINT(S)
Left leg tenderness with a history of blood clots.
HISTORY OF PRESENT ILLNESS
The patient is a 70-year-old male who presents with left leg tenderness. The patient reports a past history of blood clots in the same leg. He is currently not on any anticoagulation therapy. The initial occurrence of blood clots was associated with
a long drive to [place] for [employer], during which he was seated for approximately 36 hours.
The patient experienced significant swelling in the leg yesterday, described as being significantly larger than normal, though he mentions that his leg �usually swells,� but not to this extent. He wore compression socks previously but is not wearing
them at the moment. He mentioned a recent incident where he slipped off a step ladder and hit the back of his leg on a door, which may have contributed to this episode, although its uncertain if this was the instigating factor for the possible
recurrence of a clot.
An ultrasound of the leg has been ordered to evaluate for the presence of a new or recurrent thrombosis. He denies experiencing any chest pain or difficulty breathing at this time.
ADDITIONAL HISTORY OBTAINED FROM SOURCE OTHER THAN THE PATIENT
The patients mother indicated that the patient wore compression socks in the past and his leg swelling was noticeably severe yesterday.
PLAN
1. Perform an ultrasound of the left leg to assess for deep vein thrombosis.
2. Monitor for any development of symptoms that may suggest pulmonary embolism, such as chest pain or difficulty breathing.
3. Evaluate the need for resuming or commencing anticoagulation therapy based on ultrasound findings.
4. Provide patient education about signs and symptoms of blood clots and the importance of wearing compression stockings.
5. Follow up with the patient following the ultrasound results for further management.
DIFFERENTIAL DIAGNOSIS
The Differential Diagnosis includes, in no particular order and is not limited to:
1. Deep vein thrombosis
2. Muscle contusion or strain
3. Superficial thrombophlebitis
4. Chronic venous insufficiency
5. Cellulitis
6. Compartment syndrome
7. Lymphedema
8. Popliteal artery aneurysm
9. Peripheral arterial disease
10. Bakers cyst
CARE-UPDATE
04/24/25 - 13:45
Ultrasound confirms superficial thrombophlebitis in the left gastrocnemius vein without evidence of DVT. The patient remains stable and is ready for discharge. Pain is likely due to contusion rather than thrombophlebitis.
Disposition:
SUMMARY OF ENCOUNTER
The patient, a 70-year-old male, presented with left leg tenderness and a history of blood clots in the same leg. An ultrasound was performed, confirming superficial thrombophlebitis in the left gastrocnemius vein without evidence of deep vein
thrombosis (DVT). The patient is stable and likely experiencing pain due to a contusion rather than thrombophlebitis.
DISPOSITION
Discharge.
ASSESSMENT
Left calf pain, likely secondary to superficial thrombophlebitis and contusion, without signs of DVT.
PLAN
1. Discharge the patient as stable, with instructions to return to the emergency department if symptoms worsen or new symptoms arise.
2. Educate the patient on signs and symptoms of blood clots, the importance of wearing compression stockings, and the significance of seeking medical attention for symptoms like chest pain or difficulty breathing.
INDEPENDENT REVIEW OF LABS AND INTERPRETATION OF TESTS
My independent interpretation of ultrasound confirms superficial thrombophlebitis in the left gastrocnemius vein without evidence of deep vein thrombosis (DVT).
PATIENT EDUCATION AND COUNSELING
The patient was counseled on the likelihood of the left calf pain being due to superficial thrombophlebitis. He was educated on recognizing worsening symptoms such as increased swelling, warmth, or pain in the leg, and signs of possible
complications such as chest pain or difficulty breathing.
FOLLOW-UP INSTRUCTIONS
The patient is advised to follow up with primary care as needed and return to the emergency department if there are any concerning symptoms or if directed by his primary care physician.
MEDICAL DECISION MAKING
1. Number and Complexity of Problems Addressed: Chronic conditions affecting care include a history of blood clots. Differential diagnosis includes deep vein thrombosis, muscle contusion or strain, superficial thrombophlebitis, chronic venous
insufficiency, cellulitis, compartment syndrome, lymphedema, popliteal artery aneurysm, peripheral arterial disease, Bakers cyst.
2. Data:
Category 1:
- My independent interpretation of the ultrasound of the left leg revealed superficial thrombophlebitis without DVT.
Category 2:
- Clinical information was obtained from an independent historian, the patient�s mother, who noted noticeable severe swelling yesterday.
3. Risk:
- Consideration of Admission/Observation: Escalation of care including admission/observation was considered given the complexity and risk of the patients presenting complaint and exam findings. However, ultimately the patient is safe for outpatient
management with close follow-up. Reasoning: Work-up reassuring, does not reveal any acute life/organ-threatening processes, patients symptoms well controlled upon reevaluation, reexamination is reassuring, vitals are stable, patient agreeable with
discharge, and reliable for follow-up.
DIAGNOSIS
- Superficial Thrombophlebitis, Left Leg (ICD-10: I80.02)
- Contusion of the Left Leg (ICD-10: S80.12XA)
Past History
Past History
ED Past Medical History: GERD
ED Past Surgical History: Orthopedic
Social History
Tobacco: Former smoker
Alcohol: Daily (2 beers/evening)
Drug: None
Personal:
Phy Exam
Physical Exam
Physical Exam:
.
Course
Orders/Labs/Results
Orders:
Orders
04/24/25 09:01
US Periph Venous LOWER Ext LT Urgent
Comment:
Reason For Exam: left leg pain
Vital Signs
Initial and Last Documented VS:
Initial Vital Signs
Temp Pulse Resp BP Pulse Ox
97.8 F 66 18 151/70 96
04/24/25 08:55 04/24/25 08:55 04/24/25 08:55 04/24/25 08:55 04/24/25 08:55
Last Documented Vital Signs
Temp Pulse Resp BP Pulse Ox
97.8 F 66 18 151/70 96
04/24/25 08:55 04/24/25 08:55 04/24/25 08:55 04/24/25 08:55 04/24/25 09:16
*Pulse Oximetry
SaO2: 96
Oxygen Mode of Delivery: Room air
Patient hypoxic: no
*Critical Care Note
Total Time (30-74mins, 75-104mins- exclusive of procedures): Not Applicable
ED Attending Note
-
Portions of this chart may have been created with voice recognition software.� Occasional wrong word or��sound alike� substitutions may have occurred due to the inherent limitations of voice recognition software.
Discharge Plan
Departure
Patient Disposition: Home (Routine Discharge)
Date of Disposition: 04/24/25
Time of Disposition: 11:51
Patient with high blood pressure during this ER visit?: Yes
Condition: Good
Discharge Problem:
Superficial thrombophlebitis of left leg
Instructions: Superficial vein phlebitis and thrombosis, BLOOD PRESSURE
Prescriptions:
No Action
omeprazole 20 mg Capsule,Delayed Release(Dr/Ec)
20 mg PO DAILY
lidocaine 4 % Adhesive Patch,Medicated
1 patch topical DAILY Qty: 30 0RF
gabapentin 100 mg Capsule
100 mg PO TID 30 Days Qty: 90 0RF
oxycodone 10 mg Tablet
10 mg PO Q4HPRN PRN (Reason: Moderate Pain) Qty: 18 0RF
methylprednisolone [Medrol (Ray)] 4 mg tablets,dose pack
See Rx Instructions .ROUTE .COMPLEX Qty: 21 0RF
Rx Instructions:
orally per package directions
nystatin 100,000 unit/mL Suspension
5 ml PO QID 7 Days Qty: 140 0RF
Eliquis DVT-PE Treat 30D Start 5 mg (74 tabs) tablets,dose pack
See Rx Instructions .ROUTE .COMPLEX Qty: 74 0RF
Rx Instructions:
orally per package directions
Referrals:
Robby Balbuena MD [Family Provider, Family Practice] - Call in 1-3 days for appt
Interventions
Interventions:
*Risk Screen - Suicide Last Done: 04/24/25 08:55
*General Assessment Last Done: 04/24/25 08:55
*Neglect/Abuse Screening Last Done: 04/24/25 08:55
*ED- Fall Risk Assessment Last Done: 04/24/25 09:19
*ED COVID-19 Vaccine History Last Done: 04/24/25 09:19
*Nursing Disposition Last Done: 04/24/25 12:09
ED- Cardiac Assessment Last Done: 04/24/25 09:19
ED- Pulmonary Assessment Last Done: 04/24/25 09:19
ED-Skin Assessment Last Done: 04/24/25 09:19
Discharge Date and Time
Discharge Date/Time: 04/24/25 12:09
Print Language: TONGAN
[2025-04-24 09:19] VITALS: BMI 31.4
--- NOTE | 2025-04-24 11:41 | EDRN ---
Patient aware we are still waiting on ultrasound report, he is sitting in the chair and has family with him, no further complaints.
== END 2025-04-24 12:09 | disposition home or self-care (01) ==
LOC: EMR 08:53
PROVIDERS: EMERGENCY PHYSICIAN Emergency Medicine; FAMILY PHYSICIAN Family Medicine
DX: I80.02 Phlebitis and thrombophlebitis of superficial vessels of left lower extremity (principal); S80.12XA Contusion of left lower leg, initial encounter; X58.XXXA Exposure to other specified factors, initial encounter
CPT/HCPCS: 99284; 93971

== ENCOUNTER → 2025-05-20 13:05 | Outpatient (REF) | payer MEDICARE, SELFPAY | LOC: RCS 13:05 | PROVIDERS: ATTENDING PHYSICIAN Internal Medicine Interventional Cardiology; FAMILY PHYSICIAN Family Medicine | DX: R00.1 Bradycardia, unspecified (principal); R03.0 Elevated blood-pressure reading, without diagnosis of hypertension; R93.1 Abnormal findings on diagnostic imaging of heart and coronary circulation | CPT/HCPCS: 93306 ==

== ENCOUNTER → 2025-06-19 13:27 | Outpatient (REF) | payer MEDICARE, SELFPAY | LOC: RCS 13:27 | PROVIDERS: ATTENDING PHYSICIAN Internal Medicine Interventional Cardiology; FAMILY PHYSICIAN Family Medicine | DX: R06.09 Other forms of dyspnea (principal) | CPT/HCPCS: 93017; 93350 ==